=== PATIENT | female | born 1975 | race Caucasian/White ===

== ENCOUNTER 2019-04-11 04:27 | Emergency (ER) | payer BC ==
[~2019-04-11] VITALS: Ht 172.7 cm; Wt 64.9 kg
--- NOTE | 2019-04-11 04:40 | NUR ---
TO BED 3 AMBULATORY C/O CHEST TIGHTNESS WITH SOB X3DAYS, WORSE TODAY. PT AAOX4 NO ACUTE DISTRESS NOTED, RESP EVEN AND UNLABORED. PLACE PT ON CARDIAC MONITORING, CONTINUOUS POX.PENDING ER MD DUMONT.
[2019-04-11 05:43] LABS: BASOPHILS % (AUTO) 0.5 % (0.0-2.0); EOSINOPHILS % (AUTO) 1.7 % (0.0-6.0); HEMATOCRIT 42 % (33-45); HEMOGLOBIN 13.7 g/dL (11.5-14.8); MEAN CORPUSCULAR HGB CONC 33 g/dl (31.0-36.0); MEAN CORPUSCULAR VOLUME 86 fL (82-100); MONOCYTES # (AUTO) 0.4 /CMM (0.1-1.30); NEUTROPHILS # (AUTO) 2.6 /CMM (1.8-8.9); NEUTROPHILS % (AUTO) 50.8 % (43.0-81.0); PLATELET COUNT (AUTO) 180 /CMM (150-450); RED BLOOD CELL COUNT(AUTO) 4.87 MIL/uL (4.0-5.2)
[2019-04-11 05:51] LABS: CALCIUM, SERUM 9.3 mg/dL (8.5-10.1); CARBON DIOXIDE 27 mmol/L (21-32); CHLORIDE 107 mmol/L (98-107); CREATININE 1.1 mg/dL (0.6-1.3); GLUCOSE 87 mg/dL (74-106); POTASSIUM 4.4 mmol/L (3.5-5.1); SODIUM SERUM 139 mmol/L (136-145); UREA NITROGEN, BLOOD 10 mg/dL (7-18)
[2019-04-11] MEDS ORDERED: IOHEXOL-350 100 ML VIAL IV ONE (06:11)
[2019-04-11] MEDS ORDERED: CT SWABBABLE VALVE TRANS SET 1 EA INFUS.SET MC ONE (06:11)
[2019-04-11] MEDS ORDERED: IV NS 0.9% 250 ML IV ONE (06:11)
--- NOTE | 2019-04-11 06:16 | NUR ---
PT TRANSPORTED TO RADIOLOGY FOR CT PULMONARY ANGIOGRAM.
--- NOTE | 2019-04-11 07:51 | NUR ---
IV removed. Catheter intact and site benign. Pressure and 4x4 applied to site. No bleeding noted.Patient discharged to home in stable condition. Written and verbal after care instructions given. Patient verbalizes understanding of instruction.
[2019-04-11 07:52] VITALS: BP 106/67
== END 2019-04-11 07:53 | disposition home or self-care (01) ==
LOC: ER 04:30
DX: R07.89 Other chest pain (principal); F32.9 Major depressive disorder, single episode, unspecified; M06.9 Rheumatoid arthritis, unspecified; Z86.718 Personal history of other venous thrombosis and embolism
CPT/HCPCS: 36415; 71045; 71275; 80048; 84484; 85025; 85378; 93005; 99284; J7050; Q9967